=== PATIENT | male | born 1935 | race Hispanic/Latino ===

== ENCOUNTER 2021-09-11 09:14 | Emergency (ER) | payer MEDICARE ==
--- NOTE | 2021-09-11 09:23 | Event Note ---
ED Screening Note Date of service: 09/11/21 Time: :22 ED Screening Note: 86-year-old male presents emergency department chief complaint of bright red blood per rectum over the past 2 days. He reports a large amount of this morning. He has a history of upper GI bleed in the past requiring blood transfusion many years ago. He denies any weakness, lightheadedness, pain. This initial assessment/diagnostic orders/clinical plan/treatment(s) is/are subject to change based on patients health status, clinical progression and re- assessment by fellow clinical providers in the ED. Further treatment and workup at subsequent clinical providers discretion. Patient/guardian urged not to elope from the ED as their condition may be serious if not clinically assessed and managed. Initial orders include: GI bleeding protocol including CBC, CMP, PT, PTT, type and screen
--- NOTE | 2021-09-11 09:49 | Emergency Department Report ---
ED GI Bleed HPI - General Chief complaint: GI Bleed Stated complaint: BLOOD IN STOOL Time Seen by Provider: 09/11/21 09:31 Source: patient Mode of arrival: Ambulatory Limitations: No Limitations - History of Present Illness Initial comments: Patient presents with a 2-day history of bright red blood per rectum. Today, he states that the blood was fairly significant. Initially, he had only notes blood on the toilet paper. Today, he noticed blood in the commode. He does not feel dizzy or lightheaded. There is no abdominal pain. This is bright red. He has had no black stools. He has had no tarry stools. There is no use of anticoagulants. He states that he takes a baby aspirin twice a week. That is the extent of his NSAID use. He has no fevers or chills per there is no cough congestion. Is not bleeding from other sites. He does have a prior history of upper GI bleed several years ago. He states that the GI office referred him here today. - Related Data Allergies Allergy/AdvReac Type Severity Reaction Status Date / Time aspirin Allergy Unknown Verified 09/11/21 09:20 ED Review of Systems ROS: Stated complaint: BLOOD IN STOOL Other details as noted in HPI Comment: All other systems reviewed and negative Constitutional: denies: fever Eyes: denies: eye pain ENT: denies: throat pain Respiratory: denies: cough Cardiovascular: denies: chest pain Endocrine: denies: unexplained weight gain Gastrointestinal: as per HPI Musculoskeletal: denies: back pain Skin: denies: rash Neurological: denies: headache, weakness Hematological/Lymphatic: denies: easy bruising ED Past Medical Hx - Past Medical History Hx Hypertension: Yes Additional medical history: Upper GI bleed - Surgical History Hx Coronary Stent: Yes - Family History Family history: hypertension - Social History Smoking Status: Never Smoker Substance Use Type: None ED Physical Exam - General Limitations: No Limitations, Other (Pulse ox noted and normal) General appearance: alert, in no apparent distress, obese - Head Head exam: Present: atraumatic, normocephalic, normal inspection - Eye Eye exam: Present: normal appearance. Absent: EOMI, scleral icterus - ENT ENT exam: Present: normal exam, normal orophraynx, normal external ear exam - Neck Neck exam: Absent: tenderness, meningismus - Respiratory Respiratory exam: Present: normal lung sounds bilaterally. Absent: respiratory distress - Cardiovascular Cardiovascular Exam: Present: regular rate, normal rhythm - GI/Abdominal GI/Abdominal exam: Present: soft. Absent: distended, tenderness - Rectal Rectal exam: Present: normal inspection, bloody stool (Bright red). Absent: hemorrhoids - Extremities Exam Extremities exam: Present: normal capillary refill. Absent: calf tenderness - Back Exam Back exam: Absent: CVA tenderness (R), CVA tenderness (L) - Neurological Exam Neurological exam: Present: alert, oriented X3, CN II-XII intact, normal gait. Absent: motor sensory deficit - Psychiatric Psychiatric exam: Present: normal affect, normal mood - Skin Skin exam: Present: warm, dry ED Course Vital Signs 09/11/21 09/11/21 09/11/21 09:22 10:40 10:57 Temperature 98.0 F Pulse Rate 86 73 Respiratory 18 16 Rate Blood Pressure 196/84 Blood Pressure 185/90 [Left] O2 Sat by Pulse 96 98 97 Oximetry - Reevaluation(s) Reevaluation #1: 09/11/21 09:48 Labs been ordered. Old records reviewed. Reevaluation #2: 09/11/21 11:00 Labs are noted. GI was notified and the patient was discharged. ED Medical Decision Making - Lab Data Result diagrams: 09/11/21 09:32 09/11/21 09:32 Rhythm strip: Normal sinus rhythm without ectopy per monitor observed in seconds. - Medical Decision Making Patient presents with bright red blood per rectum. He has had an upper GI bleed before. He has no melena. I do not believe this represents an upper GI bleed. Patient is not anemic and does not require transfusion. Patient does not have evidence of leukocytosis. He does not have tenderness that would suggest peritonitis. He does not appear to have blood loss from other sources. I do not believe this represents any type of coagulopathy. Patient be treated symptomatically with outpatient endoscopy. As he has no abdominal tenderness, no leukocytosis, and no other complaint at this time, I do not believe CT is indicated. Critical Care Time: No Critical care attestation.: If time is entered above; I have spent that time in minutes in the direct care of this critically ill patient, excluding procedure time. ED Disposition Clinical Impression: Bright red blood per rectum, Referred by health rehab care assistant Disposition: 01 HOME / SELF CARE / HOMELESS Is pt being admited?: No Condition: Stable Instructions: Lower Gastrointestinal Bleeding Additional Instructions: Have a high-fiber diet. Drink plenty water. Return for problems. Follow-up as discussed. Referrals: PRIMARY CARE, [Referring] - 3-5 Days MASON TREJO MD [Staff Physician] - 3-5 Days ALEXA DIOR MD [Staff Physician] - 3-5 Days Forms: Accompanied Note
[2021-09-11 09:52] LABS: Basophils # (Auto) 0.1 K/mm3 (0.0-0.1); Basophils % (Auto) 0.7 % (0.0-1.8); Eosinophils # (Auto) 0.1 K/mm3 (0.0-0.4); Eosinophils % (Auto) 1.3 % (0.0-4.3); Hematocrit 37.4 % (35.5-45.6); Lymphocytes # (Auto) 0.9 K/mm3 (1.2-5.4); Lymphocytes % (Auto) 10.3 % (13.4-35.0); Mean Corpuscular HGB Conc 35 % (32-34); Mean Corpuscular Volume 86 fl (84-94); Monocytes # (Auto) 0.6 K/mm3 (0.0-0.8); Monocytes % (Auto) 6.7 % (0.0-7.3); Platelet Count 223 K/mm3 (140-440); Red Blood Count 4.33 M/mm3 (3.65-5.03); Red Cell Distribution Width 14.1 % (13.2-15.2)
[2021-09-11 10:03] LABS: INR 0.98 (0.87-1.13)
[2021-09-11 10:12] LABS: Albumin 4.3 g/dL (3.9-5); Calcium 9.2 mg/dL (8.4-10.2)
[2021-09-11 10:58] VITALS: BP 185/90
== END 2021-09-11 12:08 | disposition home or self-care (01) ==
LOC: ED 09:14
DX: K92.2 Gastrointestinal hemorrhage, unspecified (principal); I10 Essential (primary) hypertension; Z98.890 Other specified postprocedural states; Z88.6 Allergy status to analgesic agent
CPT/HCPCS: 36415; 80053; 83690; 85025; 85610; 85730; 86850; 86900; 86901; 99283